=== PATIENT | male | born 1995 | race Caucasian/White ===

== ENCOUNTER 2024-07-07 12:46 | Emergency (ER) | payer MEDICAID, SELFPAY | END 2024-07-07 18:04 | disposition left against medical advice (07) | LOC: HO.ED 18:03 | PROVIDERS: Emergency Provider Student in an Organized Health Care Education/Training Program | DX: Z53.21 Procedure and treatment not carried out due to patient leaving prior to being seen by health care provider (principal) ==

== ENCOUNTER 2024-08-01 08:59 | Emergency (ER) | payer MEDICAID, SELFPAY ==
--- NOTE | ~2024-08-01 | XR_ITS ---
EXAMINATION: XR CHEST CLINICAL INFORMATION: cough COMPARISON: None available. TECHNIQUE: Frontal view of the chest was obtained. FINDINGS: No significant abnormality is noted involving the heart, lungs, mediastinum, bony thorax or soft tissues. XR/XR chest 1V IMPRESSION: No acute disease Electronically signed by: Axel Huber MD 08/01/2024 11:02 AM [facility]
--- NOTE | 2024-08-01 09:07 | ED_ITS ---
HPI - SOB/Dyspnea General Chief Complaint: General Medical Stated Complaint: DIFF BREATHING,DUONEB @98% PER EMS Time Seen by Provider: 08/01/24 09:02 Source: patient and EMS Mode of arrival: EMS Limitations: no limitations History of Present Illness HPI Narrative: Presented to the emergency department via ambulance with a chief complaint of shortness of breath he has history of asthma, ran out of the inner. He was given nebulizer by the ambulance. MD elicited complaint: shortness of breath, cough and asthma attack Pertinent past history: asthma Onset (ago): day(s) (2) Timing: constant Severity: moderate Exacerbating factors: nothing Relieving factors: nothing Known history of: asthma Related Data Home oxygen amount: none Previous Rx's ?Medication ?Instructions ?Recorded albuterol sulfate 90 mcg/actuation 2 puff inhalation Q6H PRN 08/01/24 aerosol inhaler (Ventolin HFA) shortness of breath or wheezing #8.5 grams prednisone 20 mg tablet 60 mg (3 x 20 mg) PO DAILY #12 tabs 08/01/24 Allergies Allergy/AdvReac Type Severity Reaction Status Date / Time No Known Allergies Allergy Verified 08/01/24 09:18 Review of Systems 2 Eyes: Eyes: Reports no additional eye complaints Respiratory: Respiratory: Reports no additional respiratory complaints Gastrointestinal: Gastrointestinal: Reports no additional gastrointestinal complaints [facility] Past Medical History Attestation statement: The following information was validated with the patient. [facility] Narrative: Asthma Source: unable to obtain Social History Social History Alcohol intake: current Alcohol intake frequency: 0-2 drinks per day Smoked in Last 30 Days: No Use of substances other than those prescribed or required for medical reasons: Yes Substance Use Type: Marijuana Advance Directives: No Advance Directives Information Provided: Yes Do you have a plan to hurt others: No Plan Physical Exam 2 Vital Signs: Vital Signs: Last Vital Signs Temp 98.7 F 08/01/24 09:43 Pulse 71 08/01/24 11:12 Resp 16 08/01/24 11:12 BP 144/84 H 08/01/24 09:43 Pulse Ox 93 08/01/24 09:43 O2 Del Method Room Air 08/01/24 09:43 BMI result Body Mass Index 19.0 no distress Const: General: cooperative Nutritional Appearance: well nourished O rientation/consciousness: patient oriented x3 HEENT: Head: Yes normal to inspection Ears: hearing grossly normal bilaterally General nose exam: Normal external nose present Face and sinus: Yes normal facial exam Mouth: Normal oral and palatal mucosa present Throat: Yes posterior oropharynx normal Resp: Auscultation: rhonchi and wheezes Cardio: Jugular venous distension: no JVD Rate: regular rate Rhythm: r egular rhythm GI: Inspection: Yes normal to inspection Palpation (GI): Soft to palpation Auscultation: normal bowel sounds : General: Yes no CVA tenderness Back/Spine/Pelvis: Back: no CVA tenderness Pelvis: no pain with anterior- posterior compression Neuro: General: patient oriented x3 Course Reevaluation(s) Reevaluation #1: PATIENT WAS RE-EXAMINED AT THIS TIME DOING MUCH BETTER, NO TACHYPNEA RESPIRATORY RATE 16 AFEBRILE SAT 93% ON ROOM AIR HE IS COMFORTABLE TO GO HOME Time: 11:40 Medications Administered Discontinued Medications Generic Name Dose Route Start Last Admin Trade Name Jahq PRN Reason Stop Dose Admin Albuterol Sulfate 4 puff 08/01/24 10:05 08/01/24 10:07 Albuterol Sulfate 90 Mcg 8 Gm Inhaler INHALE 08/01/24 10:06 4 puff ONCE ONE Administration Albuterol/Ipratropium 3 ml 08/01/24 11:06 08/01/24 11:11 Albuterol/Iprat 2.5/0.5mg 3 Ml Ampul.Neb INHALE 08/01/24 11:07 3 ml ONCE ONE Administration Methylprednisolone Sodium Succinate 125 mg 08/01/24 09:17 08/01/24 09:44 Methylprednisolone Sod Succ 125 Mg/2 Ml Vial IVPUSH 08/01/24 09:18 125 mg ONCE ONE Administration Medical Decision Making Medical Decision Making [facility] Narrative: Patient presented with a exacerbation of asthma we will give a nebulizer Solu- Medrol do a chest x-ray flu test Differential Diagnosis Differential Diagnoses: The differential diagnosis associated with the presentation includes Asthma exacerbation/pneumonia/bronchitis Lab Data [facility] Lab Attestation statement: I reviewed the patient's lab results. 08/01/24 09:28 08/01/24 09:29 Labs: Lab Results 08/01/24 08/01/24 Range/Units 09:28 09:29 WBC 6.2 (4.8-10.8) X10*3/uL RBC 4.73 (4.60-5.80) X10*6/uL Hgb 14.3 (14.0-18.0) g/dl Hct 40.7 L (42.0-52.0) % MCV 86.0 (80.0-98.0) fL MCH 30.2 (27.0-33.0) pg MCHC 35.1 (31.0-36.0) g/dl RDW 13.3 (11.0-16.0) % Plt Count 301 (160-400) X10*3/uL MPV 9.5 (9.4-12.4) fL Immature Gran % (Auto) 0.2 (0.0-0.4) % Neut % (Auto) 46.9 (45-73) % Lymph % (Auto) 30.7 (20-40) % [place] % (Auto) 12.2 H (2-11) % Eos % (Auto) 9.3 H (0-4) % Baso % (Auto) 0.7 (0-2) % Lymph # (Auto) 1.9 (1.2-4.9) X10*3/uL [place] # (Auto) 0.8 (0.1-1.2) X10*3/uL Eos # (Auto) 0.6 H (0.0-0.4) X10*3/uL Baso # (Auto) 0.0 (0.0-0.2) X10*3/uL Abs Immat Gran (auto) 0.01 (0.00-0.03) X10*3/uL Absolute Neuts (auto) 2.9 (2.0-8.3) x10*3/uL Absolute Nucleated RBC 0.000 (0.0-0.012) X10*3/uL Nucleated RBC % (auto) 0.0 (0.0-0.2) /100WBC Sodium 143 (135-145) mmol/L Potassium 3.1 L (3.3-5.1) mmol/L Chloride 107 (96-108) mmol/L Carbon Dioxide 24 (22-29) mmol/L Anion Gap 15 (12-20) BUN 13 (9-16) mg/dL Creatinine 0.84 (0.5-1.4) mg/dL Estim Creat Clear Calc 114.4 Estimated GFR > 60 Random Glucose 96 (60-115) mg/dL Calcium 8.8 (8.4-10.2) mg/dL Total Bilirubin 1.2 H (0.0-1.0) mg/dL AST 19 (5-37) U/L ALT 13 (0-40) U/L Alkaline Phosphatase 54 (39-117) U/L Total Protein 6.5 (6.5-8.0) g/dL Albumin 4.1 (3.5-5.0) g/dL Influenza Type A (PCR) NEGATIVE (Negative) Influenza Type B (PCR) NEGATIVE (Negative) RSV RNA Qual (PCR) POSITIVE A (Negative) SARS-CoV-2 RNA (RT-PCR) NEGATIVE (Negative) Independent Interpretation I performed an independent interpretation of an: Plain X-Ray Radiology Impression Discussion of test interpretation with radiology: I have reviewed the radiologist's reading. Radiologist Impression: COMPARISON: None available. TECHNIQUE: Frontal view of the chest was obtained. FINDINGS: No significant abnormality is noted involving the heart, lungs, mediastinum, bony thorax or soft tissues. XR/XR chest 1V IMPRESSION: No acute disease Electronically signed by: Axel Huber MD 08/01/2024 11:02 AM [facility] Dictated By: Axel Huber MD Signed By: <Electronically signed by Axel Huber MD in OV> 08/01/24 1102 Discharge Plan Discharge Clinical Impression: Asthma attack Qualifiers: Asthma severity: moderate Asthma persistence: unspecified Qualified Code(s): J 45.901 - Unspecified asthma with (acute) exacerbation Instructions: Asthma (DC) Additional Instructions: FOLLOW UP WITH PCP WE SENT A PRESCRIPTION FOR INHALER AND PREDNISONE TO THE PHARMACY,RETURN IF WORSE Prescriptions: New albuterol sulfate [Ventolin HFA] 90 mcg/actuation HFA aerosol inhaler 2 puff inhalation Q6H PRN (Reason: shortness of breath or wheezing) Qty: 8.5 0RF prednisone 20 mg tablet 60 mg PO DAILY Qty: 12 0RF Referrals: Physician,None [Primary Care Provider] - 2 days Print Language: Lithuanian
[2024-08-01 09:13] VITALS: BP 112/74; PULSE 64; O2SAT 96; BMI 19.0
[2024-08-01 09:36] LABS: MANUAL DIFF FLAG NO
[2024-08-01 09:38] LABS: Basophils Percent Auto 0.7 % (0-2); Eosinophils Absolute Auto 0.6 X10*3/uL (0.0-0.4); Eosinophils Percent Auto 9.3 % (0-4); Hematocrit 40.7 % (42.0-52.0); Hemoglobin 14.3 g/dl (14.0-18.0); Imm Gran Abs Auto 0.01 X10*3/uL (0.00-0.03); Imm Gran Pct Auto 0.2 % (0.0-0.4); Lymphocytes Absolute Auto 1.9 X10*3/uL (1.2-4.9); Lymphocytes Percent Auto 30.7 % (20-40); Mean Corpuscular HGB Conc 35.1 g/dl (31.0-36.0); Mean Corpuscular Hemoglobin 30.2 pg (27.0-33.0); Mean Platelet Volume 9.5 fL (9.4-12.4); Monocytes Absolute Auto 0.8 X10*3/uL (0.1-1.2); Monocytes Percent Auto 12.2 % (2-11); Neutrophils Absolute Auto 2.9 x10*3/uL (2.0-8.3); Neutrophils Percent Auto 46.9 % (45-73); Platelet Count 301 X10*3/uL (160-400); Red Blood Count 4.73 X10*6/uL (4.60-5.80); Red Cell Distribution Width 13.3 % (11.0-16.0); White Blood Count 6.2 X10*3/uL (4.8-10.8)
[2024-08-01 09:43] VITALS: BP 144/84; PULSE 83; RESP 16; TEMP 37.1; O2SAT 93
[2024-08-01] MEDS: methylPREDNISolone Sod Succ 125 MG/2 ML VIAL IVPUSH (09:44)
[2024-08-01 09:52] LABS: Alanine Aminotransferase 13 U/L (0-40); Albumin Level 4.1 g/dL (3.5-5.0); Alkaline Phosphatase 54 U/L (39-117); Anion Gap 15 (12-20); Aspartate Amino Transferase 19 U/L (5-37); Bilirubin Total 1.2 mg/dL (0.0-1.0); Blood Urea Nitrogen 13 mg/dL (9-16); Calcium 8.8 mg/dL (8.4-10.2); Carbon Dioxide 24 mmol/L (22-29); Chloride 107 mmol/L (96-108); Creatinine Clr Calc Pharmacy 114.4; Estimated Glomerular Filt Rate > 60; Glucose Random 96 mg/dL (60-115); Potassium 3.1 mmol/L (3.3-5.1); Sodium 143 mmol/L (135-145); Total Protein 6.5 g/dL (6.5-8.0)
[2024-08-01] MEDS: Albuterol Sulfate 90 MCG 8 GM INHALER 4 PUFF INHALE (10:07)
[2024-08-01 10:08] VITALS: PULSE 66; RESP 16; O2SAT 95
[2024-08-01 10:26] LABS: Influenza A PCR NEGATIVE (Negative); Influenza B PCR NEGATIVE (Negative); Resp Syncy Virus RNA Qual PCR POSITIVE (Negative); SARS COV2 PCR INHOUSE NEGATIVE (Negative)
[2024-08-01] MEDS: Albuterol/Iprat 2.5/0.5MG 3 ML AMPUL.NEB INHALE (11:11)
[2024-08-01 11:12] VITALS: PULSE 71; RESP 16; O2SAT 94
[2024-08-01 11:48] VITALS: BP 117/80; PULSE 77; RESP 18; O2SAT 95
[2024-08-01 11:50] VITALS: BP 117/80; PULSE 77; RESP 16; TEMP 36.9; O2SAT 95
== END 2024-08-01 11:51 | disposition home or self-care (01) ==
PROVIDERS: Emergency Provider Emergency Medicine
DX: J45.901 Unspecified asthma with (acute) exacerbation (principal); R06.02 Shortness of breath; R05.9 Cough, unspecified; Z03.818 Encounter for observation for suspected exposure to other biological agents ruled out
CPT/HCPCS: 0241U; 71045; 80053; 85025; 94640; 96374; 99284; J2919

== ENCOUNTER 2024-08-04 02:01 | Inpatient (IN) | payer MEDICAID, SELFPAY ==
[2024-08-04] VITALS (14 sets, daily range): BP systolic 129–147; BP diastolic 65–87; PULSE 58–96; RESP 16–22; TEMP 36.6–36.9; O2SAT 89–96; BMI 17.4
--- NOTE | ~2024-08-04 | XR_ITS ---
EXAMINATION: XR CHEST CLINICAL INFORMATION: dyspnea COMPARISON: Chest radiograph 08/01/2024. TECHNIQUE: Frontal view of the chest was obtained. FINDINGS: Normal appearance of the cardiomediastinal structures. No effusions or pneumothoraces. Overall pattern of pulmonary vasculature. No focal pulmonary consolidation. Mild central peribronchial wall thickening. No skeletal abnormalities. XR/XR chest 1V IMPRESSION: *Mild central peribronchial wall thickening. Findings may represent bronchitis and/or the chronic sequela of asthma. No focal pulmonary consolidation. Electronically signed by: hCarles Orourke MD 08/04/2024 05:01 AM [facility]
--- NOTE | 2024-08-04 05:43 | ED_ITS ---
HPI - URI/Sore Throat General Chief Complaint: Upper Respiratory Symptoms Stated Complaint: RSV getting worse Time Seen by Provider: 08/04/24 05:06 Source: patient Mode of arrival: ambulatory Limitations: no limitations History of Present Illness ED Provider: HPI Narrative: Patient with coughing congestion for last few days sit positive for RSV yesterday been prescribed inhaler and prednisone patient is still coughing a lot denies any history of asthma saying he has mucopurulent phlegm now Related Data Previous Rx's ?Medication ?Instructions ?Recorded albuterol sulfate 90 mcg/actuation 2 puff inhalation Q6H PRN 08/01/24 aerosol inhaler (Ventolin HFA) shortness of breath or wheezing #8.5 grams prednisone 20 mg tablet 60 mg (3 x 20 mg) PO DAILY #12 tabs 08/01/24 azithromycin 250 mg tablet 250 mg PO DAILY 4 days #4 tabs 08/04/24 (Zithromax Z-Mikey) benzonatate 200 mg capsule 200 mg PO TID PRN cough #30 caps 08/04/24 Allergies Allergy/AdvReac Type Severity Reaction Status Date / Time No Known Allergies Allergy Verified 08/04/24 02:24 Review of Systems Review of Systems: Yes all other systems are reviewed and are negative COUNTS INCLUDE 234 BEDS AT THE [facility] Social History Social History Alcohol intake: current Alcohol intake frequency: 0-2 drinks per day Substance Use Type: Marijuana Advance Directives: No Advance Directives Information Provided: No Physical Exam Vital Signs: Vital Signs: Last Vital Signs Temp 97.9 F 08/04/24 06:02 Pulse 71 08/04/24 06:12 Resp 18 08/04/24 06:12 BP 130/77 08/04/24 06:02 Pulse Ox 94 08/04/24 06:02 O2 Del Method Room Air 08/04/24 06:02 BMI result Body Mass Index 17.4 Appearance: Alert. Oriented X3. No acute distress. Eyes: No pallor or icterus ENT: Pharynx normal. Oral Mucosa moist Neck: Normal inspection. Neck supple. CVS: Normal heart rate and rhythm. Pulses normal. Respiratory: No respiratory distress. Equal air entry bilateral, bilateral wheezing with frequent cough Abdomen: Soft and nontender. Bowel sounds are present, no mass palpable, no CVA tenderness Skin: Skin warm and dry. Normal skin color. Normal skin turgor. Extremities: No lower extremity edema. No calf tenderness Neuro: Oriented X 3. Medications Administered Discontinued Medications Generic Name Dose Route Start Last Admin Trade Name Freq PRN Reason Stop Dose Admin Azithromycin 500 mg 08/04/24 05:31 08/04/24 05:59 Azithromycin 500 Mg Tablet PO 08/04/24 05:32 500 mg ONCE ONE Administration Albuterol Sulfate 2.5 mg/ 0 mg 08/04/24 05:31 08/04/24 06:09 Albuterol/Ipratropium 3 ml INHALE 08/04/24 05:32 3.5 dose ONCE ONE Administration Guaifenesin/Codeine Phosphate 10 ml 08/04/24 05:32 08/04/24 05:59 Guaifen/Codeine Sf 200/20/10ml 10 Ml Liquid PO 08/04/24 05:33 10 ml ONCE ONE Administration Medical Decision Making Medical Decision Making [facility] Narrative: Patient with RSV bronchitis already taking inhaler and prednisone come now comes here for as having cough with mucopurulent phlegm will give him Zithromax and Tessalon Independent Interpretation I performed an independent interpretation of an: Plain X-Ray Radiology Impression Discussion of test interpretation with radiology: I have reviewed the radiologist's reading. Discharge Plan Discharge Clinical Impression: Acute bronchitis due to respiratory syncytial virus Patient Disposition: Home, Self-Care Instructions: Acute Bronchitis (ED) Additional Instructions: Continue inhaler and prednisone tablets Cough drops as prescribed Take Zithromax as advised Drink plenty of fluids You symptoms may last 7-10 days Prescriptions: New benzonatate 200 mg capsule 200 mg PO TID PRN (Reason: cough) Qty: 30 0RF azithromycin [Zithromax Z-Mikey] 250 mg tablet 250 mg PO DAILY 4 Days Qty: 4 0RF Rx Instructions: start on day 2 of therapy No Action albuterol sulfate [Ventolin HFA] 90 mcg/actuation HFA aerosol inhaler 2 puff inhalation Q6H PRN (Reason: shortness of breath or wheezing) Qty: 8.5 0RF prednisone 20 mg tablet 60 mg PO DAILY Qty: 12 0RF Print Language: Latvian
[2024-08-04] MEDS: guaiFEN/Codeine SF 200/20/10ML 10 ML LIQUID PO (05:59)
[2024-08-04] MEDS: Azithromycin 500 MG TABLET PO (05:59)
[2024-08-04] MEDS: Albuterol Sulfate 2.5 MG, Albuterol/Iprat 2.5/0.5MG 3 ML 3 ML INHALE (06:09)
[2024-08-04] MEDS: Albuterol Sulfate 2.5 MG, Albuterol Sulfate (0.083%) 2.5 MG 5 MG INHALE (07:46)
[2024-08-04] MEDS: methylPREDNISolone Sod Succ 125 MG/2 ML VIAL 100 MG IVPUSH (08:55)
[2024-08-04 09:01] LABS: MANUAL DIFF FLAG NO
[2024-08-04 09:02] LABS: Basophils Percent Auto 0.2 % (0-2); Eosinophils Percent Auto 0.2 % (0-4); Hematocrit 39.3 % (42.0-52.0); Hemoglobin 13.8 g/dl (14.0-18.0); Imm Gran Abs Auto 0.04 X10*3/uL (0.00-0.03); Imm Gran Pct Auto 0.3 % (0.0-0.4); Lymphocytes Absolute Auto 2.8 X10*3/uL (1.2-4.9); Mean Corpuscular HGB Conc 35.1 g/dl (31.0-36.0); Mean Corpuscular Hemoglobin 29.9 pg (27.0-33.0); Mean Corpuscular Volume 85.2 fL (80.0-98.0); Mean Platelet Volume 9.6 fL (9.4-12.4); Monocytes Absolute Auto 1.3 X10*3/uL (0.1-1.2); Monocytes Percent Auto 9.6 % (2-11); Neutrophils Percent Auto 68.7 % (45-73); Platelet Count 328 X10*3/uL (160-400); Red Blood Count 4.61 X10*6/uL (4.60-5.80); Red Cell Distribution Width 13.8 % (11.0-16.0); White Blood Count 13.1 X10*3/uL (4.8-10.8)
--- NOTE | 2024-08-04 09:06 | PHA.MEDREC ---
Pharmacy Consult ? Medication Reconciliation Pharmacy has completed the medication reconciliation. Spoke to patient to confirm medication list. Patient was just discharged on 08/01/24 and is in the middle of the prednisone course.
[2024-08-04 09:19] LABS: Alanine Aminotransferase 22 U/L (0-40); Albumin Level 4.2 g/dL (3.5-5.0); Alkaline Phosphatase 59 U/L (39-117); Anion Gap 11 (12-20); Aspartate Amino Transferase 23 U/L (5-37); Bilirubin Total 0.8 mg/dL (0.0-1.0); Blood Urea Nitrogen 13 mg/dL (9-16); Carbon Dioxide 25 mmol/L (22-29); Chloride 109 mmol/L (96-108); Creatinine Clr Calc Pharmacy 112.7; Estimated Glomerular Filt Rate > 60; Glucose Random 123 mg/dL (60-115); Potassium 2.7 mmol/L (3.3-5.1); Sodium 142 mmol/L (135-145); Total Protein 6.7 g/dL (6.5-8.0)
[2024-08-04] MEDS: Potassium Chloride Packet 20 MEQ PACKET 60 MEQ PO (09:44)
[2024-08-04 09:58] LABS: Magnesium 1.9 mg/dL (1.6-2.6)
--- NOTE | 2024-08-04 11:01 | P.HPHOSP_ITS ---
History of Present Illness Date of Service: 08/04/24 Chief Complaint: Shortness of breath 29-year-old homeless gentleman recently moved from [place] last month, presented initially to [place] emergency room on 08/01 due to shortness of breath with underlying history of mild intermittent asthma, since he ran out of his inhalers patient was treated with updraft treatment ,his symptoms improved, he was afebrile, O2 sat was 93%, chest x-ray benign, he was discharged home on prednisone and albuterol inhaler, however patient returned to [place] emergency room this a.m. due to persistent symptoms of shortness of breath, cough productive of green phlegm, denies fever, chills, in the emergency room patient noted to have potassium of 2.7, oxygenation 89% on room air, chest x-ray showed findings suggestive of acute bronchitis, no consolidation patient treated in the emergency room with IV azithromycin, cough medication, updraft treatment ,IV steroids and potassium supplements since patient continued to have ongoing shortness of breath cough and expiratory rhonchi he is being admitted to [facility] for management of acute hypoxic respiratory failure due to acute mild intermittent asthma exacerbation due to RSV. Review of Systems 2 Review of Systems: General no headache no dizziness no fever chills. CVS no chest pain, no palpitation. Respiratory productive cough and shortness of breath Gastrointestinal no nausea no vomiting, no abdominal pain Musculoskeletal no pain All other system reviewed and are negative PMFSH Pertinent family history: Patient is adopted Not aware of biological parents held, mid mother at age 19 and only knows that she is a heavy smoker. Social History Alcohol intake: current Alcohol intake frequency: 0-2 drinks per day Substance Use Type: Marijuana Advance Directives: No Advance Directives Information Provided: No Meds Allergies Allergy/AdvReac Type Severity Reaction Status Date / Time No Known Allergies Allergy Verified 08/04/24 02:24 Active Medications: Current Medications Acetaminophen (Acetaminophen 325 Mg Tablet) 650 mg PO Q6H PRN PRN Reason: Pain, Mild (Pain Scale 1-3), fever or headache Albuterol Sulfate (Albuterol Sulfate 90 Mcg 8 Gm Inhaler) 2 puff INHALE RQ4H PRN PRN Reason: sob Albuterol/Ipratropium (Albuterol/Iprat 2.5/0.5mg 3 Ml Ampul.Neb) 3 ml INHALE QID [facility] Calcium Carbonate (Calcium Carbonate 750 Mg Tab.Chew) 750 mg PO Q4H PRN PRN Reason: Heartburn Guaifenesin/Dextromethorphan (Guaifenesin Dm 200/20/10 Ml 10 Ml Syrup) 10 ml PO QID [facility] Azithromycin 500 mg/ Sodium (Chloride) 250 mls @ 125 mls/hr IV Q24H [facility] Magnesium Hydroxide (Milk Of Magnesia 30 Ml Oral.Susp) 30 ml PO DAILY PRN PRN Reason: Constipation Melatonin (Melatonin 3 Mg Tablet) 6 mg PO BEDTIME PRN PRN Reason: Insomnia Methylprednisolone Sodium Succinate (Methylprednisolone Sod Succ 40 Mg/Ml Vial) 40 mg IVPUSH Q12H DAVID Ondansetron HCl (Ondansetron Hcl 4 Mg/2 Ml Vial) 4 mg IVPUSH Q8H PRN PRN Reason: Nausea and Vomiting Sodium Chloride (0.9 % Sodium Chloride Flush 3 Ml Syringe) 3 ml IVFLUSH QSHIFT [facility] Physical Exam 2 Vital Signs and Narrative: Vital Signs: Last Vital Signs Temp 98.4 F 08/04/24 08:11 Pulse 89 08/04/24 08:11 Resp 20 08/04/24 08:11 BP 147/87 H 08/04/24 08:11 Pulse Ox 92 08/04/24 08:27 O2 Del Method Room Air 08/04/24 08:11 BMI result Body Mass Index 17.4 Const: Other: General resting comfortably in no acute distress. Anicteric sclera, moist mucous membranes Neck no JVD. CVS regular rate rhythm, Respiratory lungs bilateral wheeze, no respiratory distress Gastrointestinal abdomen soft, non tender, bowel sounds audible, no guarding , no rigidity. Extremities no edema. Neuro non focal Skin no rash. Psych appropriate affect Results Labs 08/04/24 08:55 08/04/24 08:54 Labs: Laboratory Results - last 24 hr 08/04/24 08/04/24 08:54 08:55 MCV 85.2 MCH 29.9 MCHC 35.1 RDW 13.8 Plt Count 328 MPV 9.6 Immature Gran % (Auto) 0.3 Neut % (Auto) 68.7 Lymph % (Auto) 21.0 [place] % (Auto) 9.6 Eos % (Auto) 0.2 Baso % (Auto) 0.2 Lymph # (Auto) 2.8 [place] # (Auto) 1.3 H Eos # (Auto) 0.0 Baso # (Auto) 0.0 Abs Immat Gran (auto) 0.04 H Absolute Neuts (auto) 9.0 H Absolute Nucleated RBC 0.000 Nucleated RBC % (auto) 0.0 Anion Gap 11 L Estim Creat Clear Calc 112.7 Estimated GFR > 60 Random Glucose 123 H Calcium 9.0 Magnesium 1.9 Total Bilirubin 0.8 AST 23 ALT 22 Alkaline Phosphatase 59 Total Protein 6.7 Albumin 4.2 Assessment and Plan (1) Acute bronchitis due to respiratory syncytial virus: Status: Acute (2) Hypoxia: Status: Acute (3) Hypokalemia: Status: Acute Plan 29-year-old gentleman with past medical history significant for mild intermittent asthma recently moved from [place] 4 weeks ago, is homeless ran out of his inhalers presented to [facility] initially on 08/01 due to shortness of breath and was discharged home on prednisone and albuterol inhaler , returned back today due to persistent symptoms of shortness of breath productive cough of mucopurulent sputum and noted to have hypoxia and hypokalemia therefore being admitted to [facility]. Acute hypoxic respiratory failure due to acute mild intermittent asthma exacerbation due to RSV DuoNeb updraft q.i.d.and prn albuterol, IV steroids 40 mg b.i.d. IV azithromycin Continue supportive care with cough medication/oxygen wean O2 as tolerated not on home oxygen On Symbicort at baseline but has no PCP will place on Breo Hypokalemia will replete and follow. Underweight with BMI of 17.4. DVT prophylaxis low risk recommend early ambulation In my clinical judgment patient required 2 night inpatient hospitalization for management of acute asthma exacerbation requiring IV steroids and updrafts. Quality Stroke Does the patient have a stroke diagnosis?: No VTE Prior VTE?: No VTE Risk Level:: Medical - low VTE Device Contraindication: Treatment Not Indicated VTE Drug Contraindication: Treatment Not Indicated
[2024-08-04] MEDS: Albuterol/Iprat 2.5/0.5MG 3 ML AMPUL.NEB INHALE ×2 (15:22→20:01)
[2024-08-04] MEDS: guaiFENesin DM 200/20/10 ML 10 ML SYRUP PO ×2 (15:22→21:07)
[2024-08-04] MEDS: 0.9 % Sodium Chloride Flush 3 ML SYRINGE IVFLUSH (16:04)
[2024-08-04 16:41] LABS: Potassium 3.6 mmol/L (3.3-5.1)
--- NOTE | 2024-08-04 18:22 | PC.NURSE ---
Pt alert, talkative, and cooperative with care. He denies complaint. 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 pt aware, took picture on phone for easy identification. Pt awaiting transfer back to main ED with other belongings per bedmanagement....
[2024-08-04] MEDS: methylPREDNISolone Sod Succ 40 MG/ML VIAL IVPUSH (21:07)
[2024-08-05] MEDS: 0.9 % Sodium Chloride Flush 3 ML SYRINGE IVFLUSH ×2 (00:59→08:05)
[2024-08-05 01:24] VITALS: BP 116/89; PULSE 70; RESP 14; TEMP 36.8; O2SAT 93
[2024-08-05 02:15] VITALS: BMI 18.4
[2024-08-05 02:18] VITALS: BP 137/84; PULSE 62; RESP 16; TEMP 36.5; O2SAT 94
[2024-08-05] MEDS: Azithromycin 500 MG in 0.9 % Sodium Chloride 250 ML 125 MG IV (05:42)
[2024-08-05 07:35] VITALS: BP 142/82; PULSE 58; RESP 18; TEMP 36.6; O2SAT 95
[2024-08-05 07:49] VITALS: PULSE 72; RESP 18; O2SAT 95
[2024-08-05] MEDS: Albuterol/Iprat 2.5/0.5MG 3 ML AMPUL.NEB INHALE ×2 (07:49→11:25)
[2024-08-05] MEDS: guaiFENesin DM 200/20/10 ML 10 ML SYRUP PO (08:05)
[2024-08-05] MEDS: methylPREDNISolone Sod Succ 40 MG/ML VIAL IVPUSH (08:05)
--- NOTE | 2024-08-05 11:01 | PM.DS ---
DS: Providers Provider Date of Service: 08/05/24 Date of admission: 08/04/24 10:56 Date of discharge: 08/05/24 Primary care physician: None Physician Attending physician on discharge: Viet Castellanos Discharging clinician: Lissette Verdin DS: Diagnosis Discharge Diagnosis (1) Acute bronchitis due to respiratory syncytial virus: Status: Acute (2) Hypoxia: Status: Acute (3) Hypokalemia: Status: Acute DS: Summary Hospital Course Hospital Course: From H&P on the day of admission 29-year-old homeless gentleman recently moved from [place] last month, presented initially to [place] emergency room on 08/01 due to shortness of breath with underlying history of mild intermittent asthma, since he ran out of his inhalers patient was treated with updraft treatment ,his symptoms improved, he was afebrile, O2 sat was 93%, chest x-ray benign, he was discharged home on prednisone and albuterol inhaler, however patient returned to [place] emergency room this a.m. due to persistent symptoms of shortness of breath, cough productive of green phlegm, denies fever, chills, in the emergency room patient noted to have potassium of 2.7, oxygenation 89% on room air, chest x-ray showed findings suggestive of acute bronchitis, no consolidation patient treated in the emergency room with IV azithromycin, cough medication, updraft treatment ,IV steroids and potassium supplements since patient continued to have ongoing shortness of breath cough and expiratory rhonchi he is being admitted to [facility] for management of acute hypoxic respiratory failure due to acute mild intermittent asthma exacerbation due to RSV. Acute hypoxic respiratory failure due to acute mild intermittent asthma exacerbation due to RSV treated with systemic steroids, breathing treatments and other supportive care measures. He was quickly able to be weaned off of supplemental oxygen. wheezing and respiratory status has improved significantly. hypokalemia resolved with replacement. Time Attestation Discharge Coordination Time (in mins): 36 Quality: Safe Use of Opioids Does Pt have an Active Cancer Diagnosis on the Problem List?: No Quality: Stroke Does the patient have a stroke diagnosis?: No Physical Exam Vital Signs: Vital Signs: Last Vital Signs Temp 98 F 08/05/24 07:35 Pulse 72 08/05/24 07:49 Resp 18 08/05/24 07:49 BP 142/82 H 08/05/24 07:35 Pulse Ox 95 12/14/24 07:35 O2 Del Method Room Air 08/05/24 07:35 BMI result Body Mass Index 18.4 Const: General: cooperative, comfortable, no acute distress, alert and awake Nutritional Appearance: thin Orientation/consciousness: patient oriented x3 Resp: Effort & Inspection: normal respiratory effort, able to speak in complete sentences, no respiratory distress and no use of accessory muscles Auscultation: clear to auscultation bilaterally Cardio: Rate: regular rate GI: Inspection: No distended Palpation (GI): Soft to palpation Neuro: General: patient oriented x3, moves all extremities and CN's II-XI intact bilaterally Extrem: General: Yes no pedal edema DS: Data Data Completed and Pending Labs on day of discharge: Laboratory Results - last 24 hr 08/04/24 15:52 Potassium 3.6 D Discharge Plan Discharge Anticipated Discharge Date/Time: 08/05/24 11:10 Patient Disposition: Home, Self-Care Discharge Diagnosis: acute asthma exacerbation RSV infection Referrals: Physician,None [Primary Care Provider] - 1 Week Discharge Medications: New benzonatate 200 mg capsule 200 mg PO TID PRN (Reason: cough) Qty: 30 0RF azithromycin [Zithromax Z-Mikey] 250 mg tablet 250 mg PO DAILY 4 Days Qty: 4 0RF Rx Instructions: start on day 2 of therapy prednisone 20 mg tablet 40 mg PO DAILY 5 Days Qty: 10 0RF budesonide-formoterol [Symbicort] 80-4.5 mcg/actuation HFA aerosol inhaler 2 puff inhalation Q12H Qty: 10.2 0RF Continued albuterol sulfate [Ventolin HFA] 90 mcg/actuation HFA aerosol inhaler 2 puff inhalation Q6H PRN (Reason: shortness of breath or wheezing) Qty: 8.5 0RF Discontinued prednisone 20 mg tablet 60 mg PO DAILY Qty: 12 0RF Discharge Orders: Discharge Order (Routine); Ordered 08/05/24 Ordered By: Lissette Verdin Activity on Discharge: As tolerated Stand Alone Forms: Patient Portal Discharge page Print Language: Kuwaiti Care Plan Goals: see below Health Concerns: asthma exacerbation due to RSV Plan of Treatment: can complete course of antibiotics previously prescribed complete course of prednisone resume using symbicort inhaler drink plenty of fluids will need to call to obtain PCP for follow up Assessment: see discharge summary Patient Instructions: Acute Bronchitis (ED)
[2024-08-05 11:25] VITALS: PULSE 88; RESP 16; O2SAT 92
--- NOTE | 2024-08-05 12:18 | MHC.CM.PN ---
PT REPORTS HE RECENTLY MOVED HER AND HAS BEEN MOVING FROM STATE TO STATE HE REPORTS HE IS CURRENTLY STAYING UNDER A BRIDGE NEAR [place] HE IS INTERESTED IN REFERRALS, BUT STATES HE HAS A JOB AND MUST BE ABLE TO WORK HE SAYS HE HAS CALLED THE [employer] ON [employer] BUT THEY WERE UNABLE TO ACCOMMODATE HE SAYS HE WORKS UNTIL 0100 HOURS MOST DAYS AND THEY WILL NOT ALLOW HIM IN THAT LATE HE IS AGREEABLE TO A REFERRAL TO THE [place] [id number] INTERMEDIATE PROGRAM THROUGH [facility] [address] PROVIDED HE IS INTERESTED IN A PCP AT [facility], CM WILL ATTEMPT TO MAKE A NEW PT APPT HE DECLINED A HCP PT WILL DC BACK TO PREVIOUS LIVING SITUATION TODAY VIA LYFT REFERRAL MADE TO [facility] FOR [facility] INTERMEDIATE PL[facility]EMENT
== END 2024-08-05 13:16 | disposition home or self-care (01) | DRG 145 ==
LOC: HO.ED 09:21 → HO.EDOVER 11:00 → HO.S3 08-05 00:46
PROVIDERS: Internal Medicine; Admitting Provider Hospitalist; Emergency Provider Student in an Organized Health Care Education/Training Program; Visit Provider Physician Assistant Medical
DX: J20.5 Acute bronchitis due to respiratory syncytial virus (principal); J96.01 Acute respiratory failure with hypoxia; J45.21 Mild intermittent asthma with (acute) exacerbation; E87.6 Hypokalemia; R63.6 Underweight; Z68.1 Body mass index [BMI] 19.9 or less, adult; D64.9 Anemia, unspecified; Z59.02 Unsheltered homelessness; Z87.891 Personal history of nicotine dependence; Z79.899 Other long term (current) drug therapy
CPT/HCPCS: 36415; 71045; 80053; 83735; 84132; 85025; 94640; 99285; J0456; J2919

== ENCOUNTER → 2024-08-04 10:56 | Outpatient (BNV) | payer MEDICAID, SELFPAY | PROVIDERS: Admitting Provider Hospitalist; Emergency Provider Student in an Organized Health Care Education/Training Program; Visit Provider Hospitalist | DX: J20.5 Acute bronchitis due to respiratory syncytial virus (principal); R09.02 Hypoxemia; E87.6 Hypokalemia | CPT/HCPCS: 99239 ==